=== PATIENT | female | born 1965 | race Caucasian/White ===

== ENCOUNTER 2019-02-04 15:22 | Outpatient (CLI) | payer BC ==
--- NOTE | 2019-02-04 16:39 | MRI ---
MRI Lumbar Spine WO Con History: Pain. Bilateral leg numbness Comparison: None. Findings: No hydronephrosis. No retroperitoneal perinephric adenopathy. Aortic contour is normal. Paraspinal musculature is symmetric. No marrow infiltrative process. Levels are as follows: L1/L2: Normal disc. No neural foraminal or spinal canal narrowing. L2/L3: Normal disc. No neural foraminal or spinal canal narrowing. L3/L4: Mild hypertrophic facet arthrosis. Minimal circumferential disc osteophyte complex. No neural foraminal spinal canal narrowing. L4/L5: Mild hypertrophic facet arthrosis. Mild disc desiccation. Small bilateral subforaminal disc os teophyte complexes. Mild bilateral neural foraminal narrowing. L5/S1: Low-grade degenerative disc space height loss. No neural foraminal or spinal canal narrowing. The conus medullaris terminates near the mid L1 vertebral body. Impression: Low-grade spondylosis centered at L4/L5.
== END 2019-02-04 15:23 | disposition home or self-care (01) ==
LOC: TBSIIMAG 15:22
PROVIDERS: ATTEND Neurological Surgery
DX: M48.062 Spinal stenosis, lumbar region with neurogenic claudication (principal); M54.5 Low back pain; M43.16 Spondylolisthesis, lumbar region; M47.816 Spondylosis without myelopathy or radiculopathy, lumbar region
CPT/HCPCS: 72148

== ENCOUNTER 2019-03-12 13:21 | Outpatient (CLI) | payer BC ==
--- NOTE | 2019-03-12 14:42 | RAD ---
4 VIEWS LUMBAR SPINE: Date: 03/12/2019 COMPARISON: None. HISTORY: Low back pain, bilateral lower extremity radiculopathy. FINDINGS: Five lumbar-type vertebral bodies are present with intact pedicles on frontal imaging. Lateral imagin g demonstrates normal vertebral body height and alignment. There is mild lower lumbar spine facet hyp ertrophy at L4-5 and L5-S1. On flexion and extension lateral imaging, no anterolisthesis or retrolist hesis is seen. IMPRESSION: Multilevel lower lumbar spine facet hypertrophy. No acute osseous abnormality. Recommend MRI if there are radicular symptoms. POS: [facility]
== END 2019-03-12 13:22 | disposition home or self-care (01) ==
LOC: TBSIIMAG 13:21
PROVIDERS: ATTEND Neurological Surgery
DX: M43.16 Spondylolisthesis, lumbar region (principal); M54.5 Low back pain; M48.062 Spinal stenosis, lumbar region with neurogenic claudication; M48.8X6 Other specified spondylopathies, lumbar region
CPT/HCPCS: 72110